=== PATIENT | male | born 1955 | race Caucasian/White ===

== ENCOUNTER 2016-07-07 16:20 | Emergency (ER) | payer MEDICARE, OTHER ==
[2016-07-07 16:45] VITALS: BP 102/71; PULSE 87; RESP 18; TEMP 97.5
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
== END 2016-07-07 17:05 | disposition home or self-care (01) ==
LOC: EC 16:20
DX: M54.5 Low back pain (principal); F17.200 Nicotine dependence, unspecified, uncomplicated; Z88.5 Allergy status to narcotic agent
CPT/HCPCS: 99283

== ENCOUNTER → 2017-09-20 | Outpatient (CLI) | payer MEDICARE, OTHER | END | disposition home or self-care (01) | LOC: LABWHC1 15:07 | PROVIDERS: ATTEND Internal Medicine Cardiovascular Disease | DX: I25.10 Atherosclerotic heart disease of native coronary artery without angina pectoris (principal) | CPT/HCPCS: 36415; 83704 ==

== ENCOUNTER 2018-10-22 11:08 | Day surgery (SDC) | payer MEDICARE, OTHER ==
[2018-10-22] MEDS ORDERED: ALPRAZolam 0.25 MG TAB PO PRN (11:27)
[2018-10-22] MEDS ORDERED: ALPRAZolam 0.5 MG TAB PO PRN (11:27)
[2018-10-22] MEDS ORDERED: NITROGLYCERIN SL TABS 0.4 MG TAB SUBLINGUAL PRN ×2 (11:27→14:14)
[2018-10-22] MEDS ORDERED: SODIUM CHLORIDE 0.9% 1,000 ML in EMPTY BAG 1 BAG IV ONE (11:27)
[2018-10-22] MEDS ORDERED: ATORVASTATIN 80 MG TAB PO STA (11:27)
[2018-10-22] MEDS ORDERED: ASPIRIN 325 MG TAB PO STA (11:27)
[2018-10-22 11:50] LABS: Basophils # (A) 0.1 k/uL (0-0.2); Basophils % (A) 1 %; Eosinophils # (A) 1.1 k/uL (0-0.7); Eosinophils % (A) 9 %; HGB 16.4 gm/dL (13.0-17.5); Lymphocytes # (A) 3.6 k/uL (1.0-4.8); Lymphocytes % (A) 28 %; MCH 30.4 pg (25.0-35.0); MCHC 34.1 g/dL (31.0-37.0); Mean Platelet Volume 6.7; Monocytes # (A) 0.5 k/uL (0-1.0); Monocytes % (A) 4 %; Neutrophils # (A) 7.3 k/uL (1.3-7.7); Neutrophils % (A) 57 %; Platelet Count 255 k/uL (150-450); RBC 5.39 m/uL (4.30-5.90); RDW 14.2 % (11.5-15.5); WBC 12.8 k/uL (3.8-10.6)
[2018-10-22 11:58] LABS: Anion Gap 8 mmol/L; Blood Urea Nitrogen 10 mg/dL (9-20); Calcium 9.4 mg/dL (8.4-10.2); Carbon Dioxide 28 mmol/L (22-30); Chloride 103 mmol/L (98-107); Glucose 108 mg/dL (74-99); Sodium 139 mmol/L (137-145)
[2018-10-22 12:03] LABS: Potassium 4.4 mmol/L (3.5-5.1)
[2018-10-22] MEDS ORDERED: IV FLUID CONTINUATION 950 ML IV ONE (12:38)
[2018-10-22] MEDS ORDERED: LIDOCAINE 1% INJ 10MG/ML (20 ML MDV) ONE (12:45)
[2018-10-22] MEDS ORDERED: fentaNYL (PF) 50 MCG/ML 2 ML AMP ONE (12:51)
[2018-10-22] MEDS: MIDAZOLAM (PF) 2 MG/2 ML VIAL IV ONE ×2 (13:03→13:10)
[2018-10-22] MEDS ORDERED: fentaNYL (PF) 50 MCG/ML 2 ML AMP IV ONE (13:03)
[2018-10-22] MEDS ORDERED: LIDOCAINE 1% INJ 10MG/ML (20 ML MDV) SQ ONE (13:08)
[2018-10-22] MEDS ORDERED: BIVALIRUDIN BOLUS 250 MG/50 ML IV ONE (13:41)
[2018-10-22] MEDS ORDERED: BIVALIRUDIN 250 MG in SODIUM CHLORIDE 0.9% 50 ML IV ONE (13:42)
[2018-10-22] MEDS ORDERED: IOPAMIDOL-370 125ML BTL INJ ONE (14:02)
--- NOTE | 2018-10-22 14:04 | CC ---
CARDIAC CATHETERIZATION REPORT A 63-year-old gentleman who has a status post stent to the right coronary artery. Patient had a stress test which showed evidence of moderate to large area of ischemia and anterior apical segment. In view of that, the patient was recommended to have a cardiac catheterization for definitive diagnosis to rule out any significant progression on the coronary artery disease. PROCEDURE: The right groin was prepped and draped in the usual manner and the right femoral artery was entered under ultrasound guidance using micropuncture needle and a #6-Samoan sheath was placed in. Selective coronary angiography was then performed in multiple projections and the left ventricular pressures were obtained. The patient tolerated the procedure well. The moderate sedation was used. Total sedation time was 18 minutes. HEMODYNAMICS: Left ventricular end-diastolic pressure is 16-20 mmHg prior to angiography. No gradient is noted across the aortic valve. SELECTIVE CORONARY ANGIOGRAPHY: Left main coronary artery is normal and patent. LAD is a good caliber blood vessel and the mid LAD after the origin of the small size septal childcare provider has a long area of diffuse stenosis with a focal stenosis of about 80%-85%. Beyond that, the LAD is a good caliber blood vessel. The circumflex coronary artery is nondominant and shows mild irregularity. Right coronary artery is totally occluded in its midportion. The distal right coronary artery fills collaterals from the left coronary system. FINAL IMPRESSION: The mid left anterior descending artery has an 80%-85% stenosis. Circumflex coronary artery is normal. Right coronary artery is totally occluded. PLAN: Will review the film with Dr. Arelis Singh and consider stent to the LAD. MMODL / IJN: [id number] /
[2018-10-22] MEDS ORDERED: NITROGLYCERIN 1000MCG/10ML SYRINGE INTRACORON ONE (14:05)
[2018-10-22] MEDS ORDERED: IOPAMIDOL-370 50ML BTL INJ ONE (14:07)
[2018-10-22] MEDS ORDERED: TICAGRELOR 90 MG TAB ONE (14:09)
[2018-10-22] MEDS ORDERED: TICAGRELOR 90 MG TAB PO ONE (14:12)
[2018-10-22] MEDS ORDERED: ZOLPIDEM 5 MG TAB PO PRN (14:14)
[2018-10-22] MEDS ORDERED: MAG HYDROX/AL HYDROX/SIMETH 30 ML CUP PO PRN (14:14)
[2018-10-22] MEDS ORDERED: ATROPINE SULFATE 0.1 MG/ML 10ML SYRINGE IV PRN (14:14)
[2018-10-22] MEDS ORDERED: RX INFO: IV CONTRAST WAS GIVEN 1 EACH MISC MISCELLANE PRN (14:14)
[2018-10-22] MEDS: ALPRAZolam 1 MG TAB PO SCH ×2 (15:58→20:33)
[2018-10-22 19:00] VITALS: RESP 18
[2018-10-22] MEDS: SODIUM CHLORIDE 0.9% 1,000 ML IV SCH (19:50)
[2018-10-22] MEDS ORDERED: ZOLPIDEM 10 MG TAB PO SCH (21:00)
[2018-10-22] MEDS ORDERED: ATORVASTATIN 80 MG TAB PO SCH ×2 (21:00)
[2018-10-22] MEDS ORDERED: MELATONIN 5 MG TABLET PO SCH (21:00)
--- NOTE | 2018-10-23 04:09 | PTCA ---
PERCUTANEOUSTRANS CORORONARY ANGIOGRAPHY DATE OF SERVICE: 10/22/2018 PROCEDURE PERFORMED: PTCA and stenting of a calcified mid left anterior descending coronary artery. PERFORMED BY: Dr. Arelis Singh. SEDATION: Moderate conscious sedation time was 35 minutes. CLINICAL INFORMATION: Mr. Salazar Medina is a 63-year-old gentleman, a patient of Dr. Major Carlson who was brought in for a cardiac cath because of abnormal stress test. He has history of prior inferior DC and stenting of a difficult RCA lesion that is now totally occluded with collaterals from the left system with mild inferobasal hypokinesia. Cardiac cath by Dr. Major Carlson revealed a significant mid LAD lesion that was heavily calcified. He was advised intervention that was performed expeditiously in the same setting. PROCEDURE NOTE: The existing 6-Israeli introducer in the right femoral artery was used to perform the procedure. I used a JL3.5 guide catheter to cannulate the left coronary artery. A run- through wire was used to cross the lesion wire was kept in the distal LAD. Predilatation was performed with a 20 mm 2.5 NC Trek balloon. I had difficulty opening the proximal portion of the lesion. This was addressed with 12 mm NC trek 3.0 balloon and with this I was able to open up the lesion. I then used a 23 mm 3.25 caliber Xience stent, but because of calcification had difficulty. I then took the stent out and used a Whisper wire and using the whisper wire as the main wire and the run-through wire as a saman wire, I was able to advance a 23 mm long 3.25 caliber Xience stent and positioned it in a good location. This stent was deployed at 12-13 atmospheres. Patient did not have chest pain or any significant EKG changes. Excellent angiographic result without complication was achieved. The wires with guide catheter was taken out. The sheath was taken out and Angio-Seal device used to secure hemostasis. Results were discussed with the patient and his . He was sent to the extended stay unit. Excellent angiographic result without complication was achieved. The patient received Angiomax bolus and infusion as per protocol. He also received 180 mg of Brilinta. I expect he will be discharged tomorrow if he remains stable. MMODL / IJN: [id number] /
[2018-10-23] MEDS: SODIUM CHLORIDE 0.9% 1,000 ML IV SCH (05:02)
[2018-10-23 07:21] LABS: Basophils % (A) 0 %; Eosinophils # (A) 0.6 k/uL (0-0.7); Eosinophils % (A) 6 %; HCT 42.7 % (39.0-53.0); HGB 14.2 gm/dL (13.0-17.5); Lymphocytes % (A) 21 %; MCH 29.7 pg (25.0-35.0); MCHC 33.3 g/dL (31.0-37.0); MCV 89.1 fL (80.0-100.0); Mean Platelet Volume 6.3; Monocytes # (A) 0.4 k/uL (0-1.0); Monocytes % (A) 4 %; Neutrophils # (A) 6.2 k/uL (1.3-7.7); Neutrophils % (A) 67 %; Platelet Count 208 k/uL (150-450); RDW 13.2 % (11.5-15.5); WBC 9.3 k/uL (3.8-10.6)
[2018-10-23 07:29] LABS: Anion Gap 6 mmol/L; Blood Urea Nitrogen 9 mg/dL (9-20); Calcium 8.9 mg/dL (8.4-10.2); Carbon Dioxide 28 mmol/L (22-30); Chloride 104 mmol/L (98-107); Glucose 110 mg/dL (74-99); Sodium 138 mmol/L (137-145)
[2018-10-23] MEDS ORDERED: METOPROLOL TARTRATE 25 MG TAB PO SCH (09:00)
[2018-10-23] MEDS ORDERED: CITALOPRAM HYDROBROMIDE 20 MG TAB PO SCH (09:00)
[2018-10-23] MEDS ORDERED: TICAGRELOR 90 MG TAB PO SCH (09:00)
[2018-10-23] MEDS ORDERED: ASPIRIN 81 MG PO SCH ×2 (09:00)
[2018-10-23] MEDS ORDERED: CHOLECALCIFEROL 1,000 UNIT TAB PO SCH (09:00)
[2018-10-23] MEDS: ALPRAZolam 1 MG TAB PO SCH (09:20)
[2018-10-23] MEDS ORDERED: METOPROLOL TARTRATE 12.5 MG TAB PO SCH (09:30)
[2018-10-23 09:46] VITALS: BMI 32.3
[2018-10-23] MEDS ORDERED: EZETIMIBE 10 MG TAB PO SCH (10:30)
[2018-10-23 11:52] VITALS: BP 110/55; PULSE 50; TEMP 97.3
--- NOTE | 2018-10-23 12:20 | PN ---
PROGRESS NOTE This patient was brought for cardiac catheterization as an outpatient. Patient had a positive stress test in the anterior apical segment. The patient underwent cardiac catheterization. There was 80%-85% stenosis of the mid LAD, just a calcified vessel. Right coronary artery was totally occluded. The patient underwent stent to the LAD. He is doing better. The right groin is normal. Denies any chest pain or shortness of breath. The patient's medications are adjusted. He will be discharged home and will follow up as an outpatient. MMODL / IJN: [id number] /
[2018-10-24] MEDS ORDERED: ASPIRIN 81 MG PO SCH (09:00)
== END 2018-10-23 13:08 | disposition home or self-care (01) ==
LOC: CATHCVL 11:08 → 3SCARD 16:02 → CATHCVL 10-23 13:08
PROVIDERS: ATTEND Internal Medicine Cardiovascular Disease
DX: I25.10 Atherosclerotic heart disease of native coronary artery without angina pectoris (principal); I25.82 Chronic total occlusion of coronary artery; R00.1 Bradycardia, unspecified; R94.39 Abnormal result of other cardiovascular function study; I10 Essential (primary) hypertension; E78.2 Mixed hyperlipidemia; I25.2 Old myocardial infarction; Z95.5 Presence of coronary angioplasty implant and graft; Z72.0 Tobacco use; Z79.1 Long term (current) use of non-steroidal anti-inflammatories (NSAID); Z79.82 Long term (current) use of aspirin; Z79.899 Other long term (current) drug therapy
CPT/HCPCS: 94760; 93458; 80048 ×2; 85025 ×2; C9600; C1760; C1769 ×4; C1887; C1725 ×2; C1894; C1874; J2001; J3010; J0583; Q9967 ×2; J2250

== ENCOUNTER → 2022-04-27 | Outpatient (CLI) | payer MEDICARE, OTHER ==
[2022-04-27 11:31] LABS: African American GFR (CKD) >90 (>60 ml/min/1.73 sqM); Blood Urea Nitrogen 9 mg/dL (9-20); Non-African American GFR(CKD) >90 (>60 ml/min/1.73 sqM)
--- NOTE | 2022-04-27 13:05 | CT ---
EXAMINATION TYPE: CT chest w con DATE OF EXAM: 04/27/2022 COMPARISON: 04/24/2016 HISTORY: Abnormal blood chemistry/bone marrow testing CT DLP: 508.3 mGycm Automated exposure control for dose reduction was used. TECHNIQUE: CT scan of the chest is performed with IV Contrast, patient injected with 70 mL of Isovue 300. MIP I mages are created on CT scanner and reviewed. 3D reconstructed images are created on an independent w orkstation and reviewed. FINDINGS: LUNGS: There is a 2 mm nodule in the peripheral margin right upper lobe axial image 13 to small to ch aracterize. There is a 2 mm nodule anterior segment right upper lobe axial image 33 and a benign appearance. There are 2 subpleural nodules measuring 2 mm within the right upper lobe axial image 40 and right mi ddle lobe axial image 40. There is a 3 mm subpleural nodule anterior segment right upper lobe axial image 42.. There is no pl eural effusion or pneumothorax seen. There is no focal pneumonia. The tracheobronchial tree is paten t. MEDIASTINUM: There are no greater than 1 cm hilar or mediastinal lymph nodes. No pericardial effusi on is seen. Atherosclerotic change of the aorta with no evidence aortic aneurysm. Coronary artery de nse calcification OTHER: Hypertrophic and degenerative changes of the spine. Small hiatal hernia noted. IMPRESSION: 1. No acute intrathoracic process. 2. There are multiple 3 mm less pulmonary nodules too small to characterize. Findings are likely kim gn. 3. Dense coronary artery calcification correlate clinically
== END | disposition home or self-care (01) ==
LOC: RADCTMAIN 10:39
PROVIDERS: ATTEND Internal Medicine
DX: I25.10 Atherosclerotic heart disease of native coronary artery without angina pectoris (principal); R91.8 Other nonspecific abnormal finding of lung field; R79.9 Abnormal finding of blood chemistry, unspecified
CPT/HCPCS: 82565; 84520; 71260; 36415; Q9967